=== PATIENT | male | born 1970 | race Hispanic/Latino ===

== ENCOUNTER 2021-11-15 18:12 | Emergency (ER) | payer BC ==
[~2021-11-15] VITALS: Ht 167.6 cm; Wt 79.4 kg
[2021-11-15] MEDS ORDERED: KETOROLAC TROMETHAMINE 60 MG/2 ML VIAL IM NR (18:45)
[2021-11-15 18:55] LABS: CLARITY,URINE CLEAR (CLEAR); COLOR,URINE YELLOW (YELLOW); KETONES,URINE NEGATIVE (NEGATIVE); LEUKOCYTE ESTERASE ,URINE NEGATIVE (NEGATIVE); NITRITE,URINE NEGATIVE (NEGATIVE); PROTEIN,URINE DIPSTICK NEGATIVE (NEGATIVE); URINE UROBILINOGEN 0.2 mg/dL (0.2 - 1)
[2021-11-15 19:15] LABS: BACTERIA,URINE FEW /HPF; EPITHELIAL CELLS,URINE FEW /LPF; MUCUS,URINE MANY (RARE); RBC,URINE 0-5 /HPF (0-5); WBC,URINE (MAN) 0-5 /HPF (0-5)
[2021-11-15] MEDS ORDERED: ACETAMINOPHEN-1 EAC4 PO (21:09)
[2021-11-15] MEDS ORDERED: CIPRO500 MG PO (21:09)
[2021-11-15 21:18] VITALS: BP 129/75
== END 2021-11-15 21:16 | disposition home or self-care (01) ==
LOC: ER 18:19
DX: N50.812 Left testicular pain (principal); N43.3 Hydrocele, unspecified; N45.1 Epididymitis
CPT/HCPCS: 76870; 81001; 93976; 99283; J1885